=== PATIENT | female | born 1985 | race American Indian/Alaskan Native ===

== ENCOUNTER 2016-09-17 11:55 | Emergency (ER) | payer OTHER ==
--- NOTE | 2016-09-17 12:07 | Emergency Department Report ---
Chief Complaint: Abdominal Pain Stated Complaint: PELVIC PAIN Time Seen by Provider: 09/17/16 12:03 - HPI History of Present Illness: PT states she started having pelvic pain this morning. PT rates the pain 12/08. - ROS Review of Systems: + n/v/D - dysuria + - saw senior firewall engineer 3 weeks ago. - Exam Physical Exam: PT looks well, non toxic. pt abd soft, pt does not appear to have tenderness but she reports soreness to the R of the umbilicus and suprapubic pain MSE screening note: Focused history and physical exam performed. Due to findings the following was ordered: labs, us ED Disposition for MSE Condition: Stable
[2016-09-17 12:45] LABS: Basophils % (Auto) 0.3 % (0.0-1.8); Hematocrit 38.6 % (30.3-42.9); Hemoglobin 12.7 gm/dl (10.1-14.3); Mean Corpuscular HGB Conc 33 % (30-34); Mean Corpuscular Hemoglobin 30 pg (28-32); Mean Corpuscular Volume 91 fl (79-97); Platelet Count 239 K/mm3 (140-440); Red Blood Count 4.26 M/mm3 (3.65-5.03); Red Cell Distribution Width 14.8 % (13.2-15.2); White Blood Count 13.6 K/mm3 (4.5-11.0)
[2016-09-17 13:00] LABS: Alanine Aminotransferase 11 units/L (7-56); Albumin 3.9 g/dL (3.9-5); Albumin/Globulin Ratio 1.2 %; Alkaline Phosphatase 65 units/L (35-129); Anion Gap 17 mmol/L; Blood Urea Nitrogen 8 mg/dL (7-17); Calcium 8.7 mg/dL (8.4-10.2); Carbon Dioxide 21 mmol/L (22-30); Chloride 103.1 mmol/L (98-107); Glucose 118 mg/dL (65-100); Potassium 4.3 mmol/L (3.6-5.0); Sodium 137 mmol/L (137-145); Total Protein 7.2 g/dL (6.3-8.2)
--- NOTE | 2016-09-17 14:31 | Ultrasound Report ---
Pelvic and transvaginal sonography: History: Pain, . Findings: Uterus measures 10.1 x 5 x 6.8 cm. Endometrial thickness 35 mm. There is suspected small intrauterine gestational sac with yolk sac. Not clearly defined wall. Right ovary 6 x 3.5 x 4.8 cm. There is a complex mass noted in the right ovary which could represent hemorrhagic mass or complex cyst. Left ovary 3.4 x 1.7 x 2.5 cm. There is corpus luteal cyst measuring 2.1 cm in diameter noted. Large amount of free fluid is noted in the cul-de-sac with debris within the fluid. Impression: Findings as detailed above. Clinical correlation and followup may be advised.
[2016-09-17 20:13] LABS: Bilirubin,Urine NEG (Negative); Blood,Urine NEG (Negative); Ketones,Urine 20 mg/dL (Negative); Leukocyte Esterase,Urine NEG (Negative); Mucus,Urine 3+ /HPF; Nitrite,Urine NEG (Negative); Urobilinogen,Urine < 2.0 mg/dL (<2.0)
[2016-09-17] MEDS ORDERED: TYLENOL PO ONE (20:34)
[2016-09-17] MEDS ORDERED: ZOFRAN IV ONE (20:34)
[2016-09-17 20:51] VITALS: BP 125/69
[2016-09-17] MEDS ORDERED: D5NS 1,000 ML IV SCH (21:00)
--- NOTE | 2016-09-17 21:13 | Emergency Department Report ---
ED Abdominal Pain HPI - General Chief Complaint: Abdominal Pain Stated Complaint: PELVIC PAIN Time Seen by Provider: 09/17/16 12:03 Source: patient Mode of arrival: Ambulatory Limitations: No Limitations - History of Present Illness Initial Comments: 30-year-old female with no significant past medical history presents to the hospital complaining of abdominal pain, nausea, vomiting, and diarrhea since this a.m. Pain is suprapubic area, constant, worse with palpation, no alleviating factors. Patient unable to characterize pain. Patient did not have a menstrual cycle last month has not taken a test. No reports of fever, sick contacts, vaginal bleeding, or dysuria. test here in the ED is positive. She reports this is her second and she has one living child. FOREIGN CORRESPONDENT: Located in [place] patient cannot recall the name or group. Severity scale (0 -10): 7 - Related Data Previous Rx's Medication Instructions Recorded Last Taken Type HYDROcodone/APAP 5-325 [[place] 1 each PO Q6HR PRN #12 tablet 09/17/16 Unknown Rx 5/325] Ondansetron [Zofran Odt] 4 mg PO Q8HR #20 tab.rapdis 09/17/16 Unknown Rx Allergies Allergy/AdvReac Type Severity Reaction Status Date / Time No Known Allergies Allergy Verified 09/17/16 12:08 ED Review of Systems ROS: Stated complaint: PELVIC PAIN Other details as noted in HPI Comment: All other systems reviewed and negative Other: Constitutional: No fevers chills Eyes: No eye pain visual changes ENT: No ear pain or throat pain Neck: Denies pain Respiratory: Denies cough wheezing shortness of breath Cardiovascular: Denies chest pain, palpitations, syncope GI: As per HPI : Denies dysuria Musculoskeletal: Denies back pain, joint swelling Skin: Denies rash, lesions, erythema Neurologic: Denies headache, numbness, weakness Psychiatric: Denies suicidal ideation, hallucinations ED Past Medical Hx - Past Medical History Previous Medical History?: No - Surgical History Past Surgical History?: No - Social History Smoking Status: Never Smoker Substance Use Type: None - Medications Home Medications: Home Medications Medication Instructions Recorded Confirmed Last Taken Type HYDROcodone/APAP 5-325 [[place] 1 each PO Q6HR PRN #12 tablet 09/17/16 Unknown Rx 5/325] Ondansetron [Zofran Odt] 4 mg PO Q8HR #20 tab.rapdis 09/17/16 Unknown Rx ED Physical Exam - General Limitations: No Limitations - Other Other exam information: General: No limitations, patient is alert in no acute distress Head exam: Atraumatic, normocephalic Eyes exam: Normal appearance ENT: Moist mucous membrane, normal oropharynx Neck exam: Normal inspection, full range of motion, no meningismus nontender Respiratory exam: Clear to auscultation bilateral, no wheezes, rales, crackles Cardiovascular: Normal rate and rhythm, normal heart sounds Abdomen: Soft, nondistended, suprapubic and right lower quadrant tenderness, with normal bowel sounds, no rebound, or guarding Extremity: Full range of motion normal inspection no deformity Back: Normal Inspection, full range of motion, no tenderness Neurologic: Alert, oriented x3, cranial nerves intact, no motor or sensory deficit Psychiatric: normal affect, normal mood Skin: Warm, dry, intact ED Course Vital Signs 09/17/16 09/17/16 12:05 20:51 Temperature 98.5 F 98.6 F Pulse Rate 96 H 83 Respiratory 16 20 Rate Blood Pressure 117/69 Blood Pressure 125/69 [Right] O2 Sat by Pulse 100 99 Oximetry - Reevaluation(s) Reevaluation #1: 09/17/16 21:12 Meds ordered: D5NS, Zofran, Tylenol Reevaluation #2: 09/17/16 23:10 Patient feeling better with ED treatment. Tolerating by mouth intake - Consultations Consultation #1: 09/17/16 21:[address] 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 Agrees that ultrasound findings suggestive of IUP and ruptured cyst. Recommend [place] as needed for pain for several days. Also recommend close FOREIGN CORRESPONDENT follow-up. ED Medical Decision Making - Lab Data Result diagrams: 09/17/16 12:20 09/17/16 12:20 Lab Results 09/17/16 09/17/16 09/17/16 Range/Units 12:20 12:20 12:20 WBC 13.6 H (4.5-11.0) K/mm3 RBC 4.26 (3.65-5.03) M/mm3 Hgb 12.7 (10.1-14.3) gm/dl Hct 38.6 (30.3-42.9) % MCV 91 (79-97) fl MCH 30 (28-32) pg MCHC 33 (30-34) % RDW 14.8 (13.2-15.2) % Plt Count 239 (140-440) K/mm3 Lymph % (Auto) 7.9 L (13.4-35.0) % Stone % (Auto) 3.2 (0.0-7.3) % Eos % (Auto) 0.0 (0.0-4.3) % Baso % (Auto) 0.3 (0.0-1.8) % Lymph # 1.1 L (1.2-5.4) K/mm3 Stone # 0.4 (0.0-0.8) K/mm3 Eos # 0.0 (0.0-0.4) K/mm3 Baso # 0.0 (0.0-0.1) K/mm3 Seg Neutrophils % 88.6 H (40.0-70.0) % Seg Neutrophils # 12.0 H (1.8-7.7) K/mm3 Sodium 137 (137-145) mmol/L Potassium 4.3 (3.6-5.0) mmol/L Chloride 103.1 (98-107) mmol/L Carbon Dioxide 21 L (22-30) mmol/L Anion Gap 17 mmol/L BUN 8 (7-17) mg/dL Creatinine 0.5 L (0.7-1.2) mg/dL Estimated GFR > 60 ml/min BUN/Creatinine Ratio 16.00 % Glucose 118 H (65-100) mg/dL Calcium 8.7 (8.4-10.2) mg/dL Total Bilirubin 0.30 (0.1-1.2) mg/dL AST 15 (5-40) units/L ALT 11 (7-56) units/L Alkaline Phosphatase 65 (35-129) units/L Total Protein 7.2 (6.3-8.2) g/dL Albumin 3.9 (3.9-5) g/dL Albumin/Globulin Ratio 1.2 % HCG, Quant 6982 H (0-4) mIU/mL Urine Color (Yellow) Urine Turbidity (Clear) Urine pH (5.0-7.0) Ur Specific [place] (1.003-1.030) Urine Protein (Negative) mg/dL Urine Glucose (UA) (Negative) mg/dL Urine Ketones (Negative) mg/dL Urine Blood (Negative) Urine Nitrite (Negative) Urine Bilirubin (Negative) Urine Urobilinogen (<2.0) mg/dL Ur Leukocyte Esterase (Negative) Urine WBC (Auto) (0.0-6.0) /HPF Urine RBC (Auto) (0.0-6.0) /HPF U Epithel Cells (Auto) (0-13.0) /HPF Urine Mucus /HPF Blood Type 09/17/16 09/17/16 Range/Units 12:20 19:51 WBC (4.5-11.0) K/mm3 RBC (3.65-5.03) M/mm3 Hgb (10.1-14.3) gm/dl Hct (30.3-42.9) % MCV (79-97) fl MCH (28-32) pg MCHC (30-34) % RDW (13.2-15.2) % Plt Count (140-440) K/mm3 Lymph % (Auto) (13.4-35.0) % Stone % (Auto) (0.0-7.3) % Eos % (Auto) (0.0-4.3) % Baso % (Auto) (0.0-1.8) % Lymph # (1.2-5.4) K/mm3 Stone # (0.0-0.8) K/mm3 Eos # (0.0-0.4) K/mm3 Baso # (0.0-0.1) K/mm3 Seg Neutrophils % (40.0-70.0) % Seg Neutrophils # (1.8-7.7) K/mm3 Sodium (137-145) mmol/L Potassium (3.6-5.0) mmol/L Chloride (98-107) mmol/L Carbon Dioxide (22-30) mmol/L Anion Gap mmol/L BUN (7-17) mg/dL Creatinine (0.7-1.2) mg/dL Estimated GFR ml/min BUN/Creatinine Ratio % Glucose (65-100) mg/dL Calcium (8.4-10.2) mg/dL Total Bilirubin (0.1-1.2) mg/dL AST (5-40) units/L ALT (7-56) units/L Alkaline Phosphatase (35-129) units/L Total Protein (6.3-8.2) g/dL Albumin (3.9-5) g/dL Albumin/Globulin Ratio % HCG, Quant (0-4) mIU/mL Urine Color Yellow (Yellow) Urine Turbidity Clear (Clear) Urine pH 6.0 (5.0-7.0) Ur Specific [place] 1.028 (1.003-1.030) Urine Protein 30 mg/dl (Negative) mg/dL Urine Glucose (UA) Neg (Negative) mg/dL Urine Ketones 20 (Negative) mg/dL Urine Blood Neg (Negative) Urine Nitrite Neg (Negative) Urine Bilirubin Neg (Negative) Urine Urobilinogen < 2.0 (<2.0) mg/dL Ur Leukocyte Esterase Neg (Negative) Urine WBC (Auto) 2.0 (0.0-6.0) /HPF Urine RBC (Auto) 2.0 (0.0-6.0) /HPF U Epithel Cells (Auto) 3.0 (0-13.0) /HPF Urine Mucus 3+ /HPF Blood Type O POSITIVE - Radiology Data Radiology results: report reviewed Transvaginal/pelvic: ENDOMETRIAL THICKNESS 35 MM. SUSPECT A SMALL INTRAUTERINE GESTATIONAL SAC WITH YOLK SAC. NOT CLEARLY DEFINED WALL. RIGHT OVARY COMPLEX MASS WHICH COULD REPRESENT HEMORRHAGIC MASS OR COMPLEX CYST. 6 X 3.5 X 4.8 CM. Left ovary corpus cyst measuring 2.1 cm. Large amount of free fluid is suspected in the cul-de-sac with debris within the fluid. - Medical Decision Making Patient treated symptomatic for nausea, vomiting, and pain. Case discussed with FOREIGN CORRESPONDENT. Follow-up will be encouraged. Patient will be provided a copy of her ultrasound for follow-up with her FOREIGN CORRESPONDENT - Differential Diagnosis ectopic, , cyst UTI, gastroenteritis Critical Care Time: No Critical care attestation.: If time is entered above; I have spent that time in minutes in the direct care of this critically ill patient, excluding procedure time. ED Disposition Clinical Impression: Early stage of , Ruptured cyst of ovary Disposition: - TO HOME OR SELFCARE Is pt being admited?: No Does the pt Need Aspirin: No Condition: Stable Instructions: (ED), Ovarian Cyst (ED) Additional Instructions: Take the [place] as needed for severe pain. Take Tylenol as needed for mild pain. Take the other medication as needed. Follow-up with the FOREIGN CORRESPONDENT doctor within 2-3 days. Return if symptoms worsen. Prescriptions: HYDROcodone/APAP 5-325 [[place] 5/325] 1 each PO Q6HR PRN #12 tablet PRN Reason: Pain Ondansetron [Zofran Odt] 4 mg PO Q8HR #20 tab.rapdis Referrals: your, manager graphic [Other] - 2-3 Days Time of Disposition: 23:11
== END 2016-09-18 00:09 | disposition home or self-care (01) ==
LOC: ED 11:55
DX: O34.81 Maternal care for other abnormalities of pelvic organs, first trimester (principal); N83.291 Other ovarian cyst, right side; Z3A.08 8 weeks gestation of pregnancy
CPT/HCPCS: 36415; 76801; 76817; 80053; 81001; 84702; 85025; 86900; 86901; 96361; 96374; 99284; J2405; J7042